=== PATIENT | female | born 1940 | race Caucasian/White ===

== ENCOUNTER 2016-11-01 19:01 | Inpatient (IN) | payer MEDICARE, BC ==
[2016-11-01 21:26] LABS: ABG CO2 ARTERIAL 18 mmol/L (21-27); ARTERIAL BLD GAS O2 SATURATION 96 % (95-98); ARTERIAL BLOOD GAS PCO2 41 mmHg (32-45); ARTERIAL PO2 98 mmHg (70-100); BICARBONATE 17 mmol/L (21-28); BLOOD GAS BASE EXCESS -10 mM/L (-/+3); PH 7.24 Units (7.35-7.45)
[2016-11-01 22:44] LABS: BASO % 0.1 % (0-2); EOS % 0.2 % (0-7); HCT-HEMATOCRIT 36.2 % (34.0-49.0); HGB-HEMOGLOBIN 11.8 gm/dl (12.0-15.5); IMMATURE GRANULOCYTES ABSOLUTE 0.07 tho/cmm (0-0.03); IMMATURE GRANULOCYTES PERCENT 0.4 % (0-0.3); LYMPH % 9.9 % (20-45); LYMPH ABSOLUTE COUNT 1.8 tho/cmm (0.8-4.5); MCH (MEAN CORPUSCULAR HGB) 29.6 pg (28.0-32.0); MCHC MEAN CORPUSCULAR HGB CONC 32.6 % (32.0-36.0); MCV (MEAN CELL VOLUME) 90.7 fl (82.0-96.0); MEAN PLATELET VOLUME 10.7 cmc (9.4-12.4); MONO % 3.3 % (0-12); MONOCYTE ABSOLUTE COUNT 0.6 tho/cmm (0.0-1.2); NEUTROPHILS % 86.1 % (40-80); PLATELET COUNT 263 tho/cmm (150-450); RED BLOOD COUNT 3.99 mil/cmm (4.00-5.20); RED CELL DISTRIBUTION WIDTH 13.3 % (12.4-16.4); WHITE BLOOD COUNT 18.6 tho/cmm (4.0-10.0)
[2016-11-01 22:54] LABS: PROTHROMBIN TIME 89.5 SECONDS (9.0-13.6)
[2016-11-01 22:58] LABS: ALKALINE PHOSPHATASE 93 U/L (33-138); ALT/SGPT 81 U/L (12-78); ANION GAP 16 mmol/L (0-20); AST/SGOT 288 U/L (10-40); BILIRUBIN,TOTAL 1.6 mg/dl (0-1.5); BLOOD UREA NITROGEN 15 mg/dl (6-24); CALCIUM 7.9 mg/dl (8.5-10.5); CARBON DIOXIDE-VENOUS 21 mmol/L (22-32); CHLORIDE 104 mmol/l (96-110); CREATININE 1.23 mg/dl (0.50-1.10); GLUCOSE 328 mg/dL (70-110); MAGNESIUM 1.7 mg/dl (1.8-2.6); POTASSIUM 4.4 mmol/L (3.7-5.1); SODIUM 137 mmol/L (135-145); eGFR VALUE FOR BLACK 49 mL/Min
[2016-11-01 23:26] LABS: INR 7.3 INR (0.9-1.1)
[2016-11-01 23:59] LABS: ABG CO2 ARTERIAL 18 mmol/L (21-27); ARTERIAL BLD GAS O2 SATURATION 99 % (95-98); ARTERIAL BLOOD GAS PCO2 39 mmHg (32-45); BICARBONATE 17 mmol/L (21-28); BLOOD GAS BASE EXCESS -10 mM/L (-/+3); PH 7.25 Units (7.35-7.45)
[2016-11-02] LABS: ARTERIAL PO2 199 mmHg (70-100)
[2016-11-02 01:07] LABS: ABG CO2 ARTERIAL 19 mmol/L (21-27); ARTERIAL BLD GAS O2 SATURATION 96 % (95-98); ARTERIAL BLOOD GAS PCO2 41 mmHg (32-45); BICARBONATE 18 mmol/L (21-28); BLOOD GAS BASE EXCESS -8 mM/L (-/+3); PH 7.26 Units (7.35-7.45)
[2016-11-02 01:09] LABS: ARTERIAL PO2 92 mmHg (70-100)
[2016-11-02 03:12] LABS: PHOSPHOROUS 3.6 mg/dl (2.5-4.9)
[2016-11-02 03:47] LABS: CKMB 475.3 ng/ml (<3.6)
[2016-11-02 05:10] LABS: ABG CO2 ARTERIAL 17 mmol/L (21-27); ARTERIAL BLD GAS O2 SATURATION 99 % (95-98); ARTERIAL BLOOD GAS PCO2 36 mmHg (32-45); BICARBONATE 16 mmol/L (21-28); BLOOD GAS BASE EXCESS -9 mM/L (-/+3); PH 7.28 Units (7.35-7.45)
[2016-11-02 05:28] LABS: BASO % 0.1 % (0-2); HCT-HEMATOCRIT 34.3 % (34.0-49.0); HGB-HEMOGLOBIN 11.1 gm/dl (12.0-15.5); IMMATURE GRANULOCYTES ABSOLUTE 0.07 tho/cmm (0-0.03); IMMATURE GRANULOCYTES PERCENT 0.3 % (0-0.3); LYMPH % 7.1 % (20-45); LYMPH ABSOLUTE COUNT 1.5 tho/cmm (0.8-4.5); MCH (MEAN CORPUSCULAR HGB) 29.1 pg (28.0-32.0); MCHC MEAN CORPUSCULAR HGB CONC 32.4 % (32.0-36.0); MCV (MEAN CELL VOLUME) 89.8 fl (82.0-96.0); MEAN PLATELET VOLUME 10.8 cmc (9.4-12.4); MONO % 11.6 % (0-12); MONOCYTE ABSOLUTE COUNT 2.4 tho/cmm (0.0-1.2); NEUTROPHIL ABSOLUTE COUNT 16.6 tho/cmm (1.6-8.0); NEUTROPHIL-AUTOMATED 16.6 tho/cmm (1.6-8.0); NEUTROPHILS % 80.9 % (40-80); PLATELET COUNT 222 tho/cmm (150-450); RED BLOOD COUNT 3.82 mil/cmm (4.00-5.20); RED CELL DISTRIBUTION WIDTH 13.6 % (12.4-16.4); WHITE BLOOD COUNT 20.5 tho/cmm (4.0-10.0)
[2016-11-02 05:35] LABS: ARTERIAL PO2 144 mmHg (70-100)
[2016-11-02 05:42] LABS: BLOOD UREA NITROGEN 17 mg/dl (6-24); CALCIUM 7.8 mg/dl (8.5-10.5); CARBON DIOXIDE-VENOUS 17 mmol/L (22-32); CHLORIDE 106 mmol/l (96-110); CREATININE 1.44 mg/dl (0.50-1.10); GLUCOSE 244 mg/dL (70-110); MAGNESIUM 2.1 mg/dl (1.8-2.6); PHOSPHOROUS 1.9 mg/dl (2.5-4.9); SODIUM 141 mmol/L (135-145); eGFR VALUE FOR BLACK 40 mL/Min
[2016-11-02 06:12] LABS: ANION GAP 21 mmol/L (0-20)
[2016-11-02 06:14] LABS: CKMB 630.9 ng/ml (<3.6); POTASSIUM 3.3 mmol/L (3.7-5.1)
[2016-11-02 09:23] LABS: ABG CO2 ARTERIAL 16 mmol/L (21-27); ARTERIAL BLD GAS O2 SATURATION 99 % (95-98); ARTERIAL BLOOD GAS PCO2 32 mmHg (32-45); BICARBONATE 15 mmol/L (21-28); BLOOD GAS BASE EXCESS -10 mM/L (-/+3)
[2016-11-02 09:24] LABS: ARTERIAL PO2 166 mmHg (70-100)
[2016-11-02 09:27] LABS: HCT-HEMATOCRIT 32.9 % (34.0-49.0); HGB-HEMOGLOBIN 10.9 gm/dl (12.0-15.5); MCV (MEAN CELL VOLUME) 88.9 fl (82.0-96.0); RED CELL DISTRIBUTION WIDTH 13.3 % (12.4-16.4)
[2016-11-02 09:40] LABS: INR 1.1 INR (0.9-1.1); PROTHROMBIN TIME 12.6 SECONDS (9.0-13.6)
[2016-11-02] MEDS ORDERED: LIPITOR40 M1 PO (11:09)
[2016-11-02 11:40] LABS: PHOSPHOROUS 2.5 mg/dl (2.5-4.9); POTASSIUM 3.4 mmol/L (3.7-5.1)
[2016-11-02 11:53] LABS: CKMB 601.1 ng/ml (<3.6)
[2016-11-02 17:32] LABS: MAGNESIUM 2.1 mg/dl (1.8-2.6); PHOSPHOROUS 2.5 mg/dl (2.5-4.9); POTASSIUM 4.2 mmol/L (3.7-5.1)
[2016-11-02 17:48] LABS: CKMB 575.6 ng/ml (<3.6)
[2016-11-03 00:29] LABS: CKMB 472.3 ng/ml (<3.6)
[2016-11-03 00:34] LABS: MAGNESIUM 1.9 mg/dl (1.8-2.6); PHOSPHOROUS 1.5 mg/dl (2.5-4.9); POTASSIUM 4.2 mmol/L (3.7-5.1)
[2016-11-03 00:39] LABS: ANION GAP 19 mmol/L (0-20); BLOOD UREA NITROGEN 21 mg/dl (6-24); CALCIUM 6.8 mg/dl (8.5-10.5); CARBON DIOXIDE-VENOUS 16 mmol/L (22-32); CHLORIDE 98 mmol/l (96-110); CREATININE 1.75 mg/dl (0.50-1.10); POTASSIUM 4.2 mmol/L (3.7-5.1); SODIUM 129 mmol/L (135-145); eGFR VALUE FOR BLACK 32 mL/Min
[2016-11-03 01:04] LABS: GLUCOSE 598 mg/dL (70-110)
[2016-11-03 04:18] LABS: ABG CO2 ARTERIAL 16 mmol/L (21-27); ARTERIAL BLD GAS O2 SATURATION 98 % (95-98); ARTERIAL BLOOD GAS PCO2 30 mmHg (32-45); BICARBONATE 15 mmol/L (21-28); BLOOD GAS BASE EXCESS -10 mM/L (-/+3); PH 7.32 Units (7.35-7.45)
[2016-11-03 04:19] LABS: ARTERIAL PO2 107 mmHg (70-100)
[2016-11-03 05:37] LABS: HCT-HEMATOCRIT 30.2 % (34.0-49.0); HGB-HEMOGLOBIN 10.5 gm/dl (12.0-15.5); IMMATURE GRANULOCYTES ABSOLUTE 0.07 tho/cmm (0-0.03); IMMATURE GRANULOCYTES PERCENT 0.3 % (0-0.3); LYMPH % 4.8 % (20-45); LYMPH ABSOLUTE COUNT 1.1 tho/cmm (0.8-4.5); MCH (MEAN CORPUSCULAR HGB) 29.6 pg (28.0-32.0); MCV (MEAN CELL VOLUME) 85.1 fl (82.0-96.0); MEAN PLATELET VOLUME 10.8 cmc (9.4-12.4); MONO % 6.2 % (0-12); MONOCYTE ABSOLUTE COUNT 1.4 tho/cmm (0.0-1.2); NEUTROPHIL ABSOLUTE COUNT 20.3 tho/cmm (1.6-8.0); NEUTROPHIL-AUTOMATED 20.3 tho/cmm (1.6-8.0); NEUTROPHILS % 88.7 % (40-80); PLATELET COUNT 199 tho/cmm (150-450); RED BLOOD COUNT 3.55 mil/cmm (4.00-5.20); RED CELL DISTRIBUTION WIDTH 12.9 % (12.4-16.4); WHITE BLOOD COUNT 22.9 tho/cmm (4.0-10.0)
[2016-11-03 05:55] LABS: ALB/GLOB RATIO 0.8 (0.8-2.0); ALBUMIN 2.4 g/dl (3.5-5.0); ALKALINE PHOSPHATASE 68 U/L (33-138); ALT/SGPT 79 U/L (12-78); ANION GAP 17 mmol/L (0-20); AST/SGOT 252 U/L (10-40); BILIRUBIN,TOTAL 1.6 mg/dl (0-1.5); BLOOD UREA NITROGEN 23 mg/dl (6-24); CALCIUM 6.9 mg/dl (8.5-10.5); CARBON DIOXIDE-VENOUS 15 mmol/L (22-32); CHLORIDE 98 mmol/l (96-110); GLUCOSE 341 mg/dL (70-110); MAGNESIUM 2.1 mg/dl (1.8-2.6); PHOSPHOROUS 2.2 mg/dl (2.5-4.9); POTASSIUM 4.2 mmol/L (3.7-5.1); SODIUM 126 mmol/L (135-145); eGFR VALUE FOR BLACK 33 mL/Min
[2016-11-03 06:22] LABS: MCHC MEAN CORPUSCULAR HGB CONC 34.8 % (32.0-36.0)
[2016-11-03 06:57] LABS: INR 1.1 INR (0.9-1.1); PROTHROMBIN TIME 12.4 SECONDS (9.0-13.6)
[2016-11-03 07:35] LABS: CKMB 335.5 ng/ml (<3.6)
[2016-11-03 11:54] LABS: MAGNESIUM 2.1 mg/dl (1.8-2.6)
[2016-11-03 12:13] LABS: ANION GAP 18 mmol/L (0-20); BLOOD UREA NITROGEN 26 mg/dl (6-24); CALCIUM 7.1 mg/dl (8.5-10.5); CARBON DIOXIDE-VENOUS 17 mmol/L (22-32); CHLORIDE 97 mmol/l (96-110); CREATININE 1.63 mg/dl (0.50-1.10); GLUCOSE 189 mg/dL (70-110); POTASSIUM 4.4 mmol/L (3.7-5.1); SODIUM 128 mmol/L (135-145); eGFR VALUE FOR BLACK 35 mL/Min
[2016-11-03 17:43] LABS: PHOSPHOROUS 3.9 mg/dl (2.5-4.9); POTASSIUM 4.6 mmol/L (3.7-5.1)
[2016-11-03 17:46] LABS: CKMB 292.3 ng/ml (<3.6)
[2016-11-04 00:16] LABS: MAGNESIUM 2.1 mg/dl (1.8-2.6); POTASSIUM 5.1 mmol/L (3.7-5.1)
[2016-11-04 00:40] LABS: CKMB 223.6 ng/ml (<3.6)
[2016-11-04 03:37] LABS: PROTHROMBIN TIME 11.8 SECONDS (9.0-13.6)
[2016-11-04 03:44] LABS: ANION GAP 16 mmol/L (0-20); BLOOD UREA NITROGEN 30 mg/dl (6-24); CARBON DIOXIDE-VENOUS 18 mmol/L (22-32); CHLORIDE 92 mmol/l (96-110); CREATININE 1.58 mg/dl (0.50-1.10); GLUCOSE 152 mg/dL (70-110); POTASSIUM 5.2 mmol/L (3.7-5.1); SODIUM 121 mmol/L (135-145); eGFR VALUE FOR BLACK 36 mL/Min
[2016-11-04 03:45] LABS: HCT-HEMATOCRIT 28.2 % (34.0-49.0); HGB-HEMOGLOBIN 9.9 gm/dl (12.0-15.5); IMMATURE GRANULOCYTES ABSOLUTE 0.07 tho/cmm (0-0.03); IMMATURE GRANULOCYTES PERCENT 0.3 % (0-0.3); LYMPH % 4.3 % (20-45); MCH (MEAN CORPUSCULAR HGB) 29.2 pg (28.0-32.0); MCHC MEAN CORPUSCULAR HGB CONC 35.1 % (32.0-36.0); MCV (MEAN CELL VOLUME) 83.2 fl (82.0-96.0); MONO % 5.5 % (0-12); MONOCYTE ABSOLUTE COUNT 1.3 tho/cmm (0.0-1.2); NEUTROPHIL ABSOLUTE COUNT 20.4 tho/cmm (1.6-8.0); NEUTROPHIL-AUTOMATED 20.4 tho/cmm (1.6-8.0); NEUTROPHILS % 89.9 % (40-80); PLATELET COUNT 180 tho/cmm (150-450); RED BLOOD COUNT 3.39 mil/cmm (4.00-5.20); RED CELL DISTRIBUTION WIDTH 13.1 % (12.4-16.4); WHITE BLOOD COUNT 22.7 tho/cmm (4.0-10.0)
[2016-11-04 03:46] LABS: CALCIUM 6.5 mg/dl (8.5-10.5)
[2016-11-04 05:13] LABS: ABG CO2 ARTERIAL 17 mmol/L (21-27); ARTERIAL BLD GAS O2 SATURATION 98 % (95-98); ARTERIAL BLOOD GAS PCO2 26 mmHg (32-45); BICARBONATE 17 mmol/L (21-28); BLOOD GAS BASE EXCESS -7 mM/L (-/+3)
[2016-11-04 05:14] LABS: ARTERIAL PO2 96 mmHg (70-100); PH 7.42 Units (7.35-7.45)
[2016-11-04 12:22] LABS: TSH-THYROID STIMULATING HORM. 0.95 uIU/ml (0.40-3.80)
[2016-11-04 16:55] LABS: PROTHROMBIN TIME 11.8 SECONDS (9.0-13.6)
[2016-11-04 16:57] LABS: PARTIAL THROMBOPLASTIN TIME 29 SECONDS (22-36)
[2016-11-05 00:33] LABS: URINE CREATININE-RANDOM 48 mg/dl (30-125); URINE SODIUM-RANDOM 26 mmol/L (20-110)
[2016-11-05 00:52] LABS: URINE POTASSIUM RANDOM 40 mmol/L (12-62)
[2016-11-05 04:34] LABS: IMMATURE GRANULOCYTES PERCENT 0.7 % (0-0.3); LYMPH % 6.4 % (20-45); LYMPH ABSOLUTE COUNT 0.9 tho/cmm (0.8-4.5); MCH (MEAN CORPUSCULAR HGB) 29.1 pg (28.0-32.0); MCHC MEAN CORPUSCULAR HGB CONC 34.5 % (32.0-36.0); MCV (MEAN CELL VOLUME) 84.4 fl (82.0-96.0); MEAN PLATELET VOLUME 10.8 cmc (9.4-12.4); MONO % 6.2 % (0-12); MONOCYTE ABSOLUTE COUNT 0.9 tho/cmm (0.0-1.2); NEUTROPHIL ABSOLUTE COUNT 12.8 tho/cmm (1.6-8.0); NEUTROPHIL-AUTOMATED 12.8 tho/cmm (1.6-8.0); NEUTROPHILS % 86.7 % (40-80); PLATELET COUNT 105 tho/cmm (150-450); RED BLOOD COUNT 2.75 mil/cmm (4.00-5.20); RED CELL DISTRIBUTION WIDTH 13.8 % (12.4-16.4); WHITE BLOOD COUNT 14.7 tho/cmm (4.0-10.0)
[2016-11-05 04:35] LABS: ABG CO2 ARTERIAL 17 mmol/L (21-27); ARTERIAL BLD GAS O2 SATURATION 95 % (95-98); ARTERIAL BLOOD GAS PCO2 24 mmHg (32-45); ARTERIAL PO2 68 mmHg (70-100); BICARBONATE 16 mmol/L (21-28); BLOOD GAS BASE EXCESS -7 mM/L (-/+3); PH 7.44 Units (7.35-7.45)
[2016-11-05 04:40] LABS: HCT-HEMATOCRIT 23.2 % (34.0-49.0)
[2016-11-05 05:03] LABS: PROTHROMBIN TIME 12.1 SECONDS (9.0-13.6)
[2016-11-05 05:13] LABS: ALB/GLOB RATIO 0.7 (0.8-2.0); ALKALINE PHOSPHATASE 97 U/L (33-138); ALT/SGPT 52 U/L (12-78); ANION GAP 16 mmol/L (0-20); BILIRUBIN,TOTAL 1.8 mg/dl (0-1.5); BLOOD UREA NITROGEN 31 mg/dl (6-24); CALCIUM 6.6 mg/dl (8.5-10.5); CARBON DIOXIDE-VENOUS 17 mmol/L (22-32); CHLORIDE 93 mmol/l (96-110); CREATININE 1.41 mg/dl (0.50-1.10); GLUCOSE 152 mg/dL (70-110); POTASSIUM 4.6 mmol/L (3.7-5.1); SODIUM 121 mmol/L (135-145); eGFR VALUE FOR BLACK 42 mL/Min
[2016-11-05 05:26] LABS: AST/SGOT 122 U/L (10-40)
[2016-11-05 13:57] LABS: URINE BILIRUBIN NEGATIVE (NEG); URINE BLOOD LARGE (NEG); URINE GLUCOSE (UA) NEGATIVE (NEG); URINE KETONE NEGATIVE (NEG); URINE LEUKOCYTE ESTERASE POSITIVE (NEG); URINE NITRITE NEGATIVE (NEG); URINE PROTEIN MODERATE (NEG); URINE SPECIFIC GRAVITY 1.015 (1.003-1.030)
[2016-11-05 14:01] LABS: URINE APPEARANCE HAZY; URINE COLOR YELLOW
[2016-11-05 14:05] LABS: URINE AMORPHOUS 2+
[2016-11-05 14:16] LABS: BAL APPEARANCE CLOUDY (CLEAR); BAL COLOR GRAY (COLORLESS)
[2016-11-05 14:33] LABS: BAL LYMPHOCYTES 1 %; BAL NEUTROPHILS 86 %
[2016-11-05 14:35] LABS: BAL EOSINOPHILS 0 %
[2016-11-05 14:35] LABS: ABG CO2 ARTERIAL 17 mmol/L (21-27); ARTERIAL BLD GAS O2 SATURATION 93 % (95-98); ARTERIAL BLOOD GAS PCO2 24 mmHg (32-45); ARTERIAL PO2 61 mmHg (70-100); BICARBONATE 16 mmol/L (21-28); BLOOD GAS BASE EXCESS -7 mM/L (-/+3); PH 7.44 Units (7.35-7.45)
[2016-11-06 03:46] LABS: ABG CO2 ARTERIAL 18 mmol/L (21-27); ARTERIAL BLD GAS O2 SATURATION 97 % (95-98); ARTERIAL BLOOD GAS PCO2 24 mmHg (32-45); BICARBONATE 18 mmol/L (21-28); BLOOD GAS BASE EXCESS -5 mM/L (-/+3); PH 7.48 Units (7.35-7.45)
[2016-11-06 04:01] LABS: ARTERIAL PO2 77 mmHg (70-100)
[2016-11-06 04:08] LABS: HCT-HEMATOCRIT 25.1 % (34.0-49.0); HGB-HEMOGLOBIN 8.9 gm/dl (12.0-15.5); MCH (MEAN CORPUSCULAR HGB) 29.5 pg (28.0-32.0); MCHC MEAN CORPUSCULAR HGB CONC 35.5 % (32.0-36.0); MCV (MEAN CELL VOLUME) 83.1 fl (82.0-96.0); MEAN PLATELET VOLUME 11.1 cmc (9.4-12.4); NEUTROPHIL-AUTOMATED 11.4 tho/cmm (1.6-8.0); PLATELET COUNT 114 tho/cmm (150-450); RED BLOOD COUNT 3.02 mil/cmm (4.00-5.20); RED CELL DISTRIBUTION WIDTH 13.8 % (12.4-16.4)
[2016-11-06 04:10] LABS: INR 1.1 INR (0.9-1.1); PROTHROMBIN TIME 12.7 SECONDS (9.0-13.6)
[2016-11-06 04:21] LABS: ALB/GLOB RATIO 0.6 (0.8-2.0); ALBUMIN 1.9 g/dl (3.5-5.0); ALKALINE PHOSPHATASE 120 U/L (33-138); ALT/SGPT 39 U/L (12-78); ANION GAP 16 mmol/L (0-20); AST/SGOT 84 U/L (10-40); BILIRUBIN,TOTAL 2.5 mg/dl (0-1.5); BLOOD UREA NITROGEN 30 mg/dl (6-24); CARBON DIOXIDE-VENOUS 18 mmol/L (22-32); CHLORIDE 95 mmol/l (96-110); CREATININE 1.42 mg/dl (0.50-1.10); GLUCOSE 174 mg/dL (70-110); POTASSIUM 4.3 mmol/L (3.7-5.1); SODIUM 125 mmol/L (135-145); eGFR VALUE FOR BLACK 41 mL/Min
[2016-11-06 04:36] LABS: CALCIUM 6.5 mg/dl (8.5-10.5)
[2016-11-06 07:03] LABS: BAND % 44 % (0-20); BAND ABSOLUTE COUNT 5.7 tho/cmm (0-2.0)
[2016-11-06 12:16] LABS: SODIUM 128 mmol/L (135-145)
[2016-11-06 12:42] LABS: GLUCOSE 138 mg/dL (70-110)
[2016-11-07 04:45] LABS: ABG CO2 ARTERIAL 21 mmol/L (21-27); ARTERIAL BLD GAS O2 SATURATION 96 % (95-98); ARTERIAL BLOOD GAS PCO2 28 mmHg (32-45); ARTERIAL PO2 72 mmHg (70-100); BICARBONATE 20 mmol/L (21-28); BLOOD GAS BASE EXCESS -2 mM/L (-/+3); PH 7.47 Units (7.35-7.45)
[2016-11-07 06:04] LABS: BASO % 0.1 % (0-2); EOS % 0.3 % (0-7); EOSINOPHIL ABSOLUTE COUNT 0.1 tho/cmm (0.0-0.7); HGB-HEMOGLOBIN 7.6 gm/dl (12.0-15.5); IMMATURE GRANULOCYTES ABSOLUTE 0.26 tho/cmm (0-0.03); IMMATURE GRANULOCYTES PERCENT 1.8 % (0-0.3); LYMPH % 6.5 % (20-45); MCH (MEAN CORPUSCULAR HGB) 29.6 pg (28.0-32.0); MCV (MEAN CELL VOLUME) 84.4 fl (82.0-96.0); MEAN PLATELET VOLUME 10.7 cmc (9.4-12.4); MONO % 9.8 % (0-12); MONOCYTE ABSOLUTE COUNT 1.4 tho/cmm (0.0-1.2); NEUTROPHIL ABSOLUTE COUNT 11.9 tho/cmm (1.6-8.0); NEUTROPHIL-AUTOMATED 11.9 tho/cmm (1.6-8.0); NEUTROPHILS % 81.5 % (40-80); PLATELET COUNT 114 tho/cmm (150-450); RED BLOOD COUNT 2.57 mil/cmm (4.00-5.20); RED CELL DISTRIBUTION WIDTH 14.3 % (12.4-16.4); WHITE BLOOD COUNT 14.6 tho/cmm (4.0-10.0)
[2016-11-07 06:07] LABS: HCT-HEMATOCRIT 21.7 % (34.0-49.0)
[2016-11-07 06:08] LABS: INR 1.2 INR (0.9-1.1); PROTHROMBIN TIME 13.5 SECONDS (9.0-13.6)
[2016-11-07 06:17] LABS: ALB/GLOB RATIO 0.4 (0.8-2.0); ALBUMIN 1.6 g/dl (3.5-5.0); ALT/SGPT 30 U/L (12-78); AST/SGOT 52 U/L (10-40); BILIRUBIN,TOTAL 2.1 mg/dl (0-1.5); BLOOD UREA NITROGEN 29 mg/dl (6-24); CARBON DIOXIDE-VENOUS 23 mmol/L (22-32); CHLORIDE 98 mmol/l (96-110); CREATININE 1.42 mg/dl (0.50-1.10); GLUCOSE 137 mg/dL (70-110); SODIUM 131 mmol/L (135-145); eGFR VALUE FOR BLACK 41 mL/Min
[2016-11-07 06:18] LABS: ALKALINE PHOSPHATASE 251 U/L (33-138); ANION GAP 13 mmol/L (0-20); POTASSIUM 3.3 mmol/L (3.7-5.1)
[2016-11-07 06:19] LABS: CALCIUM 6.5 mg/dl (8.5-10.5)
[2016-11-07 12:32] LABS: IRON BINDING CAPACITY 133 ug/dl (250-450)
[2016-11-07 12:43] LABS: IRON <10 ug/dl (37-170)
[2016-11-07 17:50] LABS: HCT-HEMATOCRIT 25.9 % (34.0-49.0); MCV (MEAN CELL VOLUME) 84.1 fl (82.0-96.0); RED CELL DISTRIBUTION WIDTH 14.6 % (12.4-16.4)
[2016-11-07 21:36] LABS: URINE BILIRUBIN NEGATIVE (NEG); URINE BLOOD SMALL (NEG); URINE GLUCOSE (UA) NEGATIVE (NEG); URINE KETONE NEGATIVE (NEG); URINE LEUKOCYTE ESTERASE NEGATIVE (NEG); URINE NITRITE NEGATIVE (NEG); URINE PROTEIN SMALL (NEG)
[2016-11-07 21:37] LABS: URINE APPEARANCE CLOUDY; URINE COLOR PALE YELLOW
[2016-11-07 21:43] LABS: URINE BACTERIA 2+; URINE EPITHELIAL CELLS 0 /[HPF] (0-10); URINE WBC 0-1 /[HPF] (0-5)
[2016-11-08 00:55] LABS: POTASSIUM 3.5 mmol/L (3.7-5.1)
[2016-11-08 04:45] LABS: ABG CO2 ARTERIAL 24 mmol/L (21-27); ARTERIAL BLD GAS O2 SATURATION 96 % (95-98); ARTERIAL BLOOD GAS PCO2 33 mmHg (32-45); ARTERIAL PO2 78 mmHg (70-100); BICARBONATE 23 mmol/L (21-28); BLOOD GAS BASE EXCESS 0 mM/L (-/+3); PH 7.45 Units (7.35-7.45)
[2016-11-08 05:26] LABS: INR 1.2 INR (0.9-1.1); PROTHROMBIN TIME 14.1 SECONDS (9.0-13.6)
[2016-11-08 05:27] LABS: BASO % 0.2 % (0-2); EOS % 0.3 % (0-7); EOSINOPHIL ABSOLUTE COUNT 0.1 tho/cmm (0.0-0.7); HCT-HEMATOCRIT 28.5 % (34.0-49.0); HGB-HEMOGLOBIN 9.7 gm/dl (12.0-15.5); IMMATURE GRANULOCYTES PERCENT 3.2 % (0-0.3); LYMPH % 4.9 % (20-45); LYMPH ABSOLUTE COUNT 0.9 tho/cmm (0.8-4.5); MCH (MEAN CORPUSCULAR HGB) 28.8 pg (28.0-32.0); MCV (MEAN CELL VOLUME) 84.6 fl (82.0-96.0); MEAN PLATELET VOLUME 10.7 cmc (9.4-12.4); MONOCYTE ABSOLUTE COUNT 1.3 tho/cmm (0.0-1.2); NEUTROPHIL ABSOLUTE COUNT 15.9 tho/cmm (1.6-8.0); NEUTROPHIL-AUTOMATED 15.9 tho/cmm (1.6-8.0); NEUTROPHILS % 84.4 % (40-80); PLATELET COUNT 133 tho/cmm (150-450); RED BLOOD COUNT 3.37 mil/cmm (4.00-5.20); RED CELL DISTRIBUTION WIDTH 15.2 % (12.4-16.4); WHITE BLOOD COUNT 18.8 tho/cmm (4.0-10.0)
[2016-11-08 05:41] LABS: ALB/GLOB RATIO 0.4 (0.8-2.0); ALBUMIN 1.7 g/dl (3.5-5.0); ALKALINE PHOSPHATASE 318 U/L (33-138); ALT/SGPT 27 U/L (12-78); ANION GAP 17 mmol/L (0-20); AST/SGOT 44 U/L (10-40); BILIRUBIN,TOTAL 2.3 mg/dl (0-1.5); BLOOD UREA NITROGEN 30 mg/dl (6-24); CALCIUM 7.2 mg/dl (8.5-10.5); CARBON DIOXIDE-VENOUS 23 mmol/L (22-32); CHLORIDE 102 mmol/l (96-110); CREATININE 1.74 mg/dl (0.50-1.10); POTASSIUM 4.1 mmol/L (3.7-5.1); SODIUM 138 mmol/L (135-145); eGFR VALUE FOR BLACK 32 mL/Min
[2016-11-08 05:53] LABS: GLUCOSE 172 mg/dL (70-110)
[2016-11-09 04:33] LABS: BASO % 0.1 % (0-2); EOS % 0.9 % (0-7); EOSINOPHIL ABSOLUTE COUNT 0.2 tho/cmm (0.0-0.7); HCT-HEMATOCRIT 31.5 % (34.0-49.0); HGB-HEMOGLOBIN 10.8 gm/dl (12.0-15.5); IMMATURE GRANULOCYTES ABSOLUTE 0.45 tho/cmm (0-0.03); IMMATURE GRANULOCYTES PERCENT 2.1 % (0-0.3); LYMPH % 4.7 % (20-45); MCH (MEAN CORPUSCULAR HGB) 29.1 pg (28.0-32.0); MCHC MEAN CORPUSCULAR HGB CONC 34.3 % (32.0-36.0); MCV (MEAN CELL VOLUME) 84.9 fl (82.0-96.0); MEAN PLATELET VOLUME 10.2 cmc (9.4-12.4); MONO % 6.6 % (0-12); MONOCYTE ABSOLUTE COUNT 1.4 tho/cmm (0.0-1.2); NEUTROPHIL ABSOLUTE COUNT 17.9 tho/cmm (1.6-8.0); NEUTROPHIL-AUTOMATED 17.9 tho/cmm (1.6-8.0); NEUTROPHILS % 85.6 % (40-80); PLATELET COUNT 199 tho/cmm (150-450); RED BLOOD COUNT 3.71 mil/cmm (4.00-5.20); RED CELL DISTRIBUTION WIDTH 15.6 % (12.4-16.4)
[2016-11-09 04:45] LABS: ALB/GLOB RATIO 0.4 (0.8-2.0); ALBUMIN 1.8 g/dl (3.5-5.0); ALKALINE PHOSPHATASE 363 U/L (33-138); ALT/SGPT 24 U/L (12-78); ANION GAP 14 mmol/L (0-20); AST/SGOT 32 U/L (10-40); BILIRUBIN,TOTAL 1.8 mg/dl (0-1.5); BLOOD UREA NITROGEN 33 mg/dl (6-24); CARBON DIOXIDE-VENOUS 28 mmol/L (22-32); CHLORIDE 101 mmol/l (96-110); CREATININE 1.78 mg/dl (0.50-1.10); GLUCOSE 183 mg/dL (70-110); POTASSIUM 3.9 mmol/L (3.7-5.1); SODIUM 139 mmol/L (135-145); eGFR VALUE FOR BLACK 31 mL/Min
[2016-11-09 05:37] LABS: ARTERIAL BLD GAS O2 SATURATION 94 % (95-98); ARTERIAL BLOOD GAS PCO2 36 mmHg (32-45); BLOOD GAS BASE EXCESS 5 mM/L (-/+3)
[2016-11-09 05:38] LABS: ABG CO2 ARTERIAL 29 mmol/L (21-27); ARTERIAL PO2 66 mmHg (70-100); BICARBONATE 28 mmol/L (21-28)
[2016-11-09 10:09] LABS: ABG CO2 ARTERIAL 30 mmol/L (21-27); ARTERIAL BLD GAS O2 SATURATION 92 % (95-98); ARTERIAL BLOOD GAS PCO2 37 mmHg (32-45); ARTERIAL PO2 60 mmHg (70-100); BICARBONATE 29 mmol/L (21-28); BLOOD GAS BASE EXCESS 6 mM/L (-/+3); PH 7.51 Units (7.35-7.45)
[2016-11-09 15:14] LABS: ABG CO2 ARTERIAL 32 mmol/L (21-27); ARTERIAL BLD GAS O2 SATURATION 95 % (95-98); ARTERIAL BLOOD GAS PCO2 49 mmHg (32-45); ARTERIAL PO2 73 mmHg (70-100); BICARBONATE 31 mmol/L (21-28); BLOOD GAS BASE EXCESS 6 mM/L (-/+3); PH 7.42 Units (7.35-7.45)
[2016-11-09 15:20] LABS: BODY FLUID APPEARANCE CLOUDY (CLEAR); BODY FLUID TYPE MIX BRONCH WASH; BODY FLUID VOLUME 23 ml
[2016-11-09 15:21] LABS: BODY FLUID COLOR PINK (COLORLESS); BODY FLUID RBC COUNT 2000 cmm (0); BODY FLUID WBC COUNT 944 cmm
[2016-11-09 15:51] LABS: BODY FLUID LYMPHOCYTES 4 %; BODY FLUID MACROPHAGES 7 %; BODY FLUID NEUTROPHILS 89 %
[2016-11-10 03:46] LABS: BASO % 0.2 % (0-2); EOS % 1.8 % (0-7); EOSINOPHIL ABSOLUTE COUNT 0.4 tho/cmm (0.0-0.7); HCT-HEMATOCRIT 33.2 % (34.0-49.0); HGB-HEMOGLOBIN 11.2 gm/dl (12.0-15.5); IMMATURE GRANULOCYTES ABSOLUTE 0.21 tho/cmm (0-0.03); IMMATURE GRANULOCYTES PERCENT 1.1 % (0-0.3); LYMPH % 6.3 % (20-45); LYMPH ABSOLUTE COUNT 1.3 tho/cmm (0.8-4.5); MCH (MEAN CORPUSCULAR HGB) 29.3 pg (28.0-32.0); MCHC MEAN CORPUSCULAR HGB CONC 33.7 % (32.0-36.0); MCV (MEAN CELL VOLUME) 86.9 fl (82.0-96.0); MEAN PLATELET VOLUME 10.1 cmc (9.4-12.4); MONO % 5.9 % (0-12); MONOCYTE ABSOLUTE COUNT 1.2 tho/cmm (0.0-1.2); NEUTROPHIL ABSOLUTE COUNT 16.9 tho/cmm (1.6-8.0); NEUTROPHIL-AUTOMATED 16.9 tho/cmm (1.6-8.0); NEUTROPHILS % 84.7 % (40-80); PLATELET COUNT 271 tho/cmm (150-450); RED BLOOD COUNT 3.82 mil/cmm (4.00-5.20); RED CELL DISTRIBUTION WIDTH 15.6 % (12.4-16.4); WHITE BLOOD COUNT 19.9 tho/cmm (4.0-10.0)
[2016-11-10 04:11] LABS: ALB/GLOB RATIO 0.3 (0.8-2.0); ALBUMIN 1.8 g/dl (3.5-5.0); ALKALINE PHOSPHATASE 386 U/L (33-138); ALT/SGPT 25 U/L (12-78); ANION GAP 14 mmol/L (0-20); AST/SGOT 37 U/L (10-40); BILIRUBIN,TOTAL 1.3 mg/dl (0-1.5); BLOOD UREA NITROGEN 35 mg/dl (6-24); CALCIUM 8.4 mg/dl (8.5-10.5); CARBON DIOXIDE-VENOUS 31 mmol/L (22-32); CHLORIDE 98 mmol/l (96-110); CREATININE 1.76 mg/dl (0.50-1.10); GLUCOSE 193 mg/dL (70-110); POTASSIUM 3.8 mmol/L (3.7-5.1); SODIUM 139 mmol/L (135-145); eGFR VALUE FOR BLACK 32 mL/Min
[2016-11-10 05:01] LABS: ABG CO2 ARTERIAL 34 mmol/L (21-27); ARTERIAL BLD GAS O2 SATURATION 94 % (95-98); ARTERIAL BLOOD GAS PCO2 42 mmHg (32-45); ARTERIAL PO2 73 mmHg (70-100); BICARBONATE 32 mmol/L (21-28); BLOOD GAS BASE EXCESS 9 mM/L (-/+3)
[2016-11-10 09:55] LABS: ABG CO2 ARTERIAL 33 mmol/L (21-27); ARTERIAL BLD GAS O2 SATURATION 92 % (95-98); ARTERIAL BLOOD GAS PCO2 34 mmHg (32-45); ARTERIAL PO2 64 mmHg (70-100); BICARBONATE 32 mmol/L (21-28); BLOOD GAS BASE EXCESS 10 mM/L (-/+3)
[2016-11-10 10:06] LABS: PH 7.59 Units (7.35-7.45)
[2016-11-10 13:35] LABS: ARTERIAL BLD GAS O2 SATURATION 96 % (95-98); ARTERIAL BLOOD GAS PCO2 31 mmHg (32-45); ARTERIAL PO2 62 mmHg (70-100); PH 7.65 Units (7.35-7.45)
[2016-11-10 13:36] LABS: ABG CO2 ARTERIAL 30 mmol/L (21-27); BICARBONATE 34 mmol/L (21-28); BLOOD GAS BASE EXCESS 12 mM/L (-/+3)
[2016-11-11 03:44] LABS: BASO % 0.1 % (0-2); HCT-HEMATOCRIT 31.9 % (34.0-49.0); HGB-HEMOGLOBIN 10.9 gm/dl (12.0-15.5); IMMATURE GRANULOCYTES ABSOLUTE 0.17 tho/cmm (0-0.03); IMMATURE GRANULOCYTES PERCENT 0.8 % (0-0.3); LYMPH % 4.4 % (20-45); LYMPH ABSOLUTE COUNT 0.9 tho/cmm (0.8-4.5); MCH (MEAN CORPUSCULAR HGB) 29.3 pg (28.0-32.0); MCHC MEAN CORPUSCULAR HGB CONC 34.2 % (32.0-36.0); MCV (MEAN CELL VOLUME) 85.8 fl (82.0-96.0); MEAN PLATELET VOLUME 10.1 cmc (9.4-12.4); MONO % 7.1 % (0-12); MONOCYTE ABSOLUTE COUNT 1.5 tho/cmm (0.0-1.2); NEUTROPHIL ABSOLUTE COUNT 18.3 tho/cmm (1.6-8.0); NEUTROPHIL-AUTOMATED 18.3 tho/cmm (1.6-8.0); NEUTROPHILS % 87.6 % (40-80); PLATELET COUNT 328 tho/cmm (150-450); RED BLOOD COUNT 3.72 mil/cmm (4.00-5.20); RED CELL DISTRIBUTION WIDTH 14.8 % (12.4-16.4); WHITE BLOOD COUNT 20.9 tho/cmm (4.0-10.0)
[2016-11-11 04:00] LABS: ALB/GLOB RATIO 0.4 (0.8-2.0); ALBUMIN 1.9 g/dl (3.5-5.0); ALKALINE PHOSPHATASE 274 U/L (33-138); ALT/SGPT 28 U/L (12-78); ANION GAP 13 mmol/L (0-20); AST/SGOT 51 U/L (10-40); BILIRUBIN,TOTAL 1.9 mg/dl (0-1.5); BLOOD UREA NITROGEN 42 mg/dl (6-24); CALCIUM 8.4 mg/dl (8.5-10.5); CARBON DIOXIDE-VENOUS 34 mmol/L (22-32); CHLORIDE 100 mmol/l (96-110); CREATININE 1.66 mg/dl (0.50-1.10); GLUCOSE 163 mg/dL (70-110); MAGNESIUM 2.2 mg/dl (1.8-2.6); SODIUM 144 mmol/L (135-145); eGFR VALUE FOR BLACK 34 mL/Min
[2016-11-11 04:04] LABS: POTASSIUM 2.9 mmol/L (3.7-5.1)
[2016-11-11 06:51] LABS: WBC MORPHOLOGY TOXIC GRANULATION
[2016-11-13] MEDS ORDERED: LORAZEPAM I2 MG/1 ML PO/SL ×2 (06:58)
[2016-11-13] MEDS ORDERED: HALOPERIDOL2 MG/1 ML PO/SL ×2 (06:59)
[2016-11-13] MEDS ORDERED: MORPHINE S20 MG/1 M1 PO/SL (07:00)
== END 2016-11-13 13:42 | disposition hospice, home (50) | DRG 270 ==
LOC: EMR2 19:01 → CCU 21:38
PROVIDERS: Internal Medicine; Internal Medicine Cardiovascular Disease; Internal Medicine Critical Care Medicine; Internal Medicine Interventional Cardiology; Nurse Practitioner Family; Physician Assistant Medical; ADMIT Internal Medicine Cardiovascular Disease
PROC: 027037Z Dilation of Coronary Artery, One Artery with Four or More Drug-eluting Intraluminal Devices, Percutaneous Approach (ICD-10-PCS; principal; 2016-11-01)
PROC: 5A02210 Assistance with Cardiac Output using Balloon Pump, Continuous (ICD-10-PCS; 2016-11-01)
PROC: 5A1955Z Respiratory Ventilation, Greater than 96 Consecutive Hours (ICD-10-PCS; 2016-11-01)
PROC: B2111ZZ Fluoroscopy of Multiple Coronary Arteries using Low Osmolar Contrast (ICD-10-PCS; 2016-11-01)
PROC: B246ZZZ Ultrasonography of Right and Left Heart (ICD-10-PCS; 2016-11-01)
PROC: 0DH68UZ Insertion of Feeding Device into Stomach, Via Natural or Artificial Opening Endoscopic (ICD-10-PCS; 2016-11-02)
PROC: B246ZZZ Ultrasonography of Right and Left Heart (ICD-10-PCS; 2016-11-02)
PROC: 02HV33Z Insertion of Infusion Device into Superior Vena Cava, Percutaneous Approach (ICD-10-PCS; 2016-11-03)
PROC: B548ZZA Ultrasonography of Superior Vena Cava, Guidance (ICD-10-PCS; 2016-11-03)
PROC: 0B9B8ZX Drainage of Left Lower Lobe Bronchus, Via Natural or Artificial Opening Endoscopic, Diagnostic (ICD-10-PCS; 2016-11-05)
PROC: B246ZZZ Ultrasonography of Right and Left Heart (ICD-10-PCS; 2016-11-05)
PROC: 0BCB8ZZ Extirpation of Matter from Left Lower Lobe Bronchus, Via Natural or Artificial Opening Endoscopic (ICD-10-PCS; 2016-11-09)
PROC: 0BC68ZZ Extirpation of Matter from Right Lower Lobe Bronchus, Via Natural or Artificial Opening Endoscopic (ICD-10-PCS; 2016-11-09)
DX: I21.09 ST elevation (STEMI) myocardial infarction involving other coronary artery of anterior wall (principal); I49.01 Ventricular fibrillation; J96.01 Acute respiratory failure with hypoxia; J15.6 Pneumonia due to other Gram-negative bacteria; G93.1 Anoxic brain damage, not elsewhere classified; K22.6 Gastro-esophageal laceration-hemorrhage syndrome; I13.0 Hypertensive heart and chronic kidney disease with heart failure and stage 1 through stage 4 chronic kidney disease, or unspecified chronic kidney disease; I50.21 Acute systolic (congestive) heart failure; N17.9 Acute kidney failure, unspecified; I46.2 Cardiac arrest due to underlying cardiac condition; D62 Acute posthemorrhagic anemia; E87.1 Hypo-osmolality and hyponatremia; J98.11 Atelectasis; I42.9 Cardiomyopathy, unspecified; Z66 Do not resuscitate; Z51.5 Encounter for palliative care; D69.6 Thrombocytopenia, unspecified; E78.5 Hyperlipidemia, unspecified; I25.5 Ischemic cardiomyopathy; I48.0 Paroxysmal atrial fibrillation; N18.2 Chronic kidney disease, stage 2 (mild); T68.XXXA Hypothermia, initial encounter; E11.22 Type 2 diabetes mellitus with diabetic chronic kidney disease; I25.10 Atherosclerotic heart disease of native coronary artery without angina pectoris
CPT/HCPCS: C1725; C1751; C1758; C1769; C1874; C9113; C9600-LD; G8978-GP-CK; G8979-GP-CJ; J0171; J0282; J0583; J0610; J0697; J1250; J1265; J1630; J1644; J1720; J1815; J1940; J2060; J2175; J2250; J2543; J2704; J3010; J3370; J3475; J3480; J7030; J7040; J7050; L4396; P9016; Q9967